=== PATIENT | male | born 1985 | race Caucasian/White ===

== ENCOUNTER 2025-04-13 17:29 | Emergency (ER) | payer OTHER, SELFPAY ==
--- NOTE | ~2025-04-13 | XR_ITS ---
CLINICAL HISTORY: fall, pain Four views of the right elbow. COMPARISON: None provided. FINDINGS: Lesion of the anterior and posterior fat pads. Nondisplaced longitudinal fracture of the radial head. Anterior humeral and radiocapitellar lines are maintained. Visualized portions of the humerus, radius and ulna appear intact. IMPRESSION: 1. Nondisplaced longitudinal fracture of the radial head. 2. Elbow joint effusion. This document has been electronically signed by: Gerardo Chowdary MD on 04/13/2025 18:17:04
[2025-04-13 17:49] VITALS: BP 139/80; PULSE 85; RESP 18; TEMP 36.6; O2SAT 98; BMI 30.2
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
[2025-04-13 18:49] VITALS: BP 139/80; PULSE 85; RESP 18; TEMP 36.6; O2SAT 98
== END 2025-04-13 18:53 | disposition home or self-care (01) ==
PROVIDERS: Emergency Provider Emergency Medicine
DX: S52.91XA Unspecified fracture of right forearm, initial encounter for closed fracture (principal); M25.521 Pain in right elbow; W05.2XXA Fall from non-moving motorized mobility scooter, initial encounter; Y93.89 Activity, other specified; Y92.9 Unspecified place or not applicable; Y99.9 Unspecified external cause status
CPT/HCPCS: 73080; 99282; 99284

== ENCOUNTER → 2025-04-13 17:50 | Outpatient (BNV) | payer OTHER, SELFPAY | PROVIDERS: Emergency Provider Emergency Medicine; Visit Provider Radiology Diagnostic Radiology | DX: S52.124A Nondisplaced fracture of head of right radius, initial encounter for closed fracture (principal) | CPT/HCPCS: 73080 ==

== ENCOUNTER 2025-05-02 10:00 | Outpatient (REF) | payer OTHER, SELFPAY ==
--- OUTSIDE RECORDS SUMMARY | 2025-05-05 10:59 | XMS_ITS | Clinical Summary ---
Author Organization [address] Address [address] [place] [address] Phone Care Team Providers Care Traveling Clerk Name Role Phone Rosalinda Myers MD Primary Care Prov ider Allergies No known active allergies Medications montelukast (SINGULAIR) 10 mg tablet Take 1 Tablet by mouth at bedtime for 360 days. 03/01/2024 Active Active Problems Problem Noted Date Diagnosed Date Drug abuse in remission ([facility] V24, [facility] V2 8) 08/21/2012 Overview (10/10/2024): On sabox Plantar wart of right foot 08/21/2012 Encounters Date Type Department Care Team Description 02/25/2025 4:30 PM EDT Office Visit Walk-In Clinic - [address] [phone] Corinne Taylor NP Acute non-recurrent maxillary sinusitis (Primary Dx) from Last 3 Months Immunizations Name Administration Dates Next Due Influenza trivalent, 0.5mL, preservative free (Fluarix; FluLaval; Fluzone) ages 6mo and older (Afluria) 3 years and older 05/11/2020 Td Tetanus diptheria (Tdvax) 7yo and older 01/21 Tdap Tetanus diptheria acell ular pertussis (Boostrix; Adacel) 7yo and older 06/07/2011,08/21/2010 Surgical History Surgery Date Site/Laterality Comments OTHER SURGICAL HISTORY 1999 Right PROCEDURE: HISTORY OTHER; COMMENT: patellar fracture Medical History Medical History Date Comments Drug abuse in remission ([facility] V24, [facility] V28) 08/21/2012 DX:Drug abuse in remission ( [facility]) Family History Medical History Relation Name Comments No Known Problems Father unknown Diabetes Maternal Grandmother Relation Name Status Comments Brother Alive Father Other Maternal Grandfather Maternal Grandmother Mother Alive Paternal Grandfather Paternal Grandmother Sister Alive Social History Tobacco Use Types Packs/Day Years Used Date Smoking Tobacco: Never Smokeless Tobacco: Never Alcohol Use Standard Drinks/Week Comments No 0 (1 standard drink = 0.6 oz pur e alcohol) Sex and Gender Information Value Date Recorded Sex Assigned at Not on file Legal Sex Male 7:32 AM EST Gender Identity Not on file Sexual Orientation Not on file Obstetrics History Last Filed Vital Signs Vital Sign Reading Time Taken Comments Blood Pressure 124/75 06/19/2024 4:27 PM EDT Pulse 75 06/19/2024 4:27 PM EDT Temperature - - Respiratory Rate - - Oxygen Saturation - - Inhaled Oxygen Concentration - - Weight 83.9 kg (185 lb) 03/01/2024 2:46 PM EDT Height 167.6 cm (5' 6 ) 03/01/2024 2:46 PM EDT Body Mass Index 29.86 03/01/2024 2:46 PM EDT Plan of Treatment Health Maintenance Due Date Last Done Comments Hepatitis B Vaccines (1 of 3 - 19+ 3-dose series) 2005 Social Influencers of Health Screening 08/14/2022 COVID-19 Vaccine (2023-2 5 season) 2024 01/04/2021, 12/04/2020 Depression Screening 09/11/2024 03/01/2024 DTaP,Tdap,and Td Vaccines (4 - Td or Tdap) 01/21/2025 01/21/2015, 06/07/2011, 08/21/2010 Influenza Vaccine (#1) 2025 05/11/2020 Cholesterol Screening (Lipid Panel) 03/01/2029 03/01/2024, 03/01/2024 HIV Screening Completed 01/03/2020 Hepatitis C Screening Completed 01/03/2020 HIB Vaccines Aged Out No longer eligi ble based on patient's age to complete this topic HPV Vaccines Aged Out No longer eligi ble based on patient's age to complete this topic Hepatitis A Vaccines Aged Out No long er eligible based on patient's age to complete this topic IPV Vaccines Aged Out No longer eligi ble based on patient's age to complete this topic MMR Vaccines Aged Out No longer eligi ble based on patient's age to complete this topic Meningococcal ACWY Vaccine Aged Out N o longer eligible based on patient's age to complete this topic Meningococcal B Vaccine Aged Out No l onger eligible based on patient's age to complete this topic Pneumococcal Vaccine: Pediatrics (0 to 5 Years) and At-Risk Patients (6 to 49 Years) Aged Out No longer eligible b ased on patient's age to complete this topic RSV Immunization Patients Under 20 months Aged Out No longer eligible b ased on patient's age to complete this topic Varicella Vaccines Aged Out No longer eligible based on patient's age to complete this topic Procedures Procedure Name Priority Date/Time Associated Diagnosis Comments DEPRESSION SCREENING Routine 03/01/2024 LIPID PANEL Routine 03/01/2024 HEPATITIS C SCREENING Routine 01/03/2020 HIV SCREENING Routine 01/03/2020 from Last 3 Months or Most Recently Relevant to Health Maintenance Results * Depression Screening (03/01/2024) [facility] Depression Screening abstracted Historical Provider HEALTH MAINTENANCE Final Result * (ABNORMAL) Lipid panel (03/01/2024) [facility] LDL/HDL Ratio 6(A) 0 - 4 Triglycerides 306(A) 0 - 150 mg/dL Cholesterol 217(A) 0 - 200 mg/dL HDL 36(A) >=40 mg/dL LDL Cholesterol 120(A) 0 - 100 mg/dL Blood Venous blood specimen / Unknown Historical Provider LAB BLOOD ORDERABLES Nandini l Result * HIV Screening (01/03/2020) [facility] HIV Screening abstracted Historical Provider HEALTH MAINTENANCE Final Result * Hepatitis C Screening (01/03/2020) Hepatitis C Screening abstracted us Historical Provider HEALTH MAINTENANCE Final Result from Last 3 Months or Most Recently Relevant to Health Maintenance Insurance [facility] [place] [address] Care Teams Traveling Clerk Relationship Specialty Start Date End Date Rosalinda Myers MD PCP - General Internal Medicine 05/22/12
--- OUTSIDE RECORDS SUMMARY | 2025-05-05 10:59 | XMS_ITS | Encounter Summary ---
Demographics Address [address] [place] [address] Home Phone Preferred Language Nepali Marital Status Samaritan Affiliation Unknown Race White Ethnic Group Not or Lati no Author Organization [facility] Address [address] [place] [address] Care Team Providers Care Oracle Database Analyst Name Role Phone Sanjuana Myers MD Primary Care Provider [phone] Reason for Visit * Reason Onset Date Comments er follow up 01/29/2016 Encounter Details Date Type Department Care Team Description 01/29/2016 Telephone Adult Medicine - [place] [address] [place] [address] Sanjuana Myers, [address] [place] [address] er follow up Social History Tobacco Use Types Packs/Day Years Used Date Smoking Tobacco: Never Alcohol Use Standard Drinks/Week Comments No 0 (1 standard drink = 0.6 oz pur e alcohol) Alcohol Habits Answer Date Recorded How often do you have a drink containing alcohol ? Never 03/01/2024 How many drinks containing a lcohol do you have on a typical day when you are drinking? 1 or 2 03/01/2024 How often do you have six or more drinks on one occasion? Never 03/01/2024 Social Isolation Answer Date Recorded In a typical week, how many times do you talk on the phone with family, friends, or neighbors? More than three times a week 03/01/2024 How often do you get togethe r with friends or relatives? More than three times a week 03/01/2024 How often do you attend chur or christian services? Never 03/01/2024 Do you belong to any clubs o r organizations such as orthodoxy groups, unions, fraternal or athletic groups, or school groups? No 03/01/2024 How often do you attend meet ings of the clubs or organizations you belong to? Never 03/01/2024 Are you now , , , , never or living with a partner? 03/01/2024 Physical Activity Answer Date Recorded On average, how many days pe r week do you engage in moderate to strenuous exercise (like walking fast, running, jogging, dancing, swimming, biking, or other activities that cause a light or heavy sweat)? 0 days 03/01/2024 On average, how many minutes do you engage in exercise at this level? 0 min 03/01/2024 Stress Answer Date Recorded Do you feel stress - tense, restless, nervous, or anxious, or unable to sleep at night because your mind is troubled all the time - these days? Only a little 03/01/2024 Financial Resource Strain Answer Date R ecorded How hard is it for you to pa y for the very basics like food, housing, medical care, and heating? Not hard at all 03/01/2024 Intimate Partner Violence Answer Date R ecorded Within the last year, have y ou been afraid of your partner or ex-partner? No 03/01/2024 Within the last year, have y ou been humiliated or emotionally abused in other ways by your partner or ex-partner? No Within the last year, have y ou been kicked, hit, slapped, or otherwise physically hurt by your partner or ex-partner? No 03/01/2024 Within the last year, have y ou been raped or forced to have any kind of sexual activity by your partner or ex-partner? No 03/01/2024 Food Insecurity Answer Date Recorded Within the past 12 months, y ou worried that your food would run out before you got money to buy more. Never true 03/01/2024 Within the past 12 months, t he food you bought just didn't last and you didn't have money to get more. Never true 03/01/2024 Transportation Needs Answer Date Record ed In the past 12 months, has l ack of transportation kept you from medical appointments or from getting medications? No 03/01/2024 In the past 12 months, has l ack of transportation kept you from meetings, work, or getting things needed for daily living? Not asked Housing Stability Answer Date Recorded In the last 12 months, was t here a time when you were not able to pay the mortgage or rent on time? No 03/01/2024 In the last 12 months, how many places have you lived? Not asked In the last 12 months, was t here a time when you did not have a steady place to sleep or slept in a penitentiary (including now)? No 03/01/2024 Sex Assigned at Date Recorded Not on file documented as of this encounter Miscellaneous Notes * Telephone Encounter - Sissy Del Castillo L.P.N. - 02/03/2016 2:22 PM EDT Er f/u scheduled 02-05-16 with Gayathri * Telephone Encounter - Sari Vasquez - 01/29/2016 3:54 PM EDT ER follow-up appointment booked NO - If ER follow up, can be booked with mid-level or MD. If hospital admission follow up MUST be booked with a physician Appointment time: -PM Provider visit is scheduled with: - Hospital patient was treated at: [facility] Date of visit: 01/27/2016 Was this only an ER visit or was the patient admitted to the hospital? ER visit onlyER visit only If patient was admitted what was the date of discharge? N/A Reason/diagnosis for visit or stay: acid reflux Was visit or stay related to an injury? NO If yes, what was the date of injury (DOI)? N/A If yes, was the injury due to N/A Tests performed: Lab: YES X-ray: YES EKG: YES Other tests. If yes, what?; N/A documented in this encounter Plan of Treatment Not on file documented as of this encounter Visit Diagnoses Not on filedocumented in this encounter Care Teams Oracle Database Analyst Relationship Specialty Start Date End Date Sanjuana Myers MD [address] [place] [id number] PCP - General Internal Medicine 05/22/12 documented as of this encounter
== END 2025-05-02 10:01 | disposition home or self-care (01) ==
LOC: HO.HOSX 10:00
PROVIDERS: Visit Provider Physician Assistant
DX: Z13.89 Encounter for screening for other disorder (principal)